=== PATIENT | female | born 1950 | race Caucasian/White ===

== ENCOUNTER → 2017-03-04 | Outpatient (CLI) | payer MEDICARE ==
[~2017-03-04] MED LIST: AMLO-254 PO; CARVEDILOL; CLOP75TA57 PO; FURO40TA4 PO; HYDR-2869 PO; HYDROCODONE; POTA10CA PO
--- NOTE | 2017-03-04 11:19 | RAD ---
Renal ultrasound with deep Doppler, 03/04/2017: History: Malignant hypertension The right kidney measures 10.6 cm in length while the left kidney measures 10.7 cm. There is no evidence of hydronephrosis. A 1.7 cm cyst is seen in the upper pole of the left kidney. A 2.1 cm hypoechoic nodule was less clearly delineated along the medial margin of the left kidney. The partially filled urinary bladder is unremarkable. Deep Doppler interrogation of the main renal arteries was performed. No high velocity is seen in either main renal artery to suggest significant renal artery stenosis. No parvus/tardus phenomena is evident. IMPRESSION: 1. No duplex evidence of significant renal artery stenosis. 2. Small left renal cyst. 3. Additional small hypoechoic lesion along the medial margin of the left kidney which may be a complicated cyst. CT scanning is suggested for further evaluation.
== END | disposition home or self-care (01) ==
LOC: US 08:35
PROVIDERS: ATTEND Internal Medicine Nephrology
DX: I15.0 Renovascular hypertension (principal); N28.1 Cyst of kidney, acquired; N28.89 Other specified disorders of kidney and ureter
CPT/HCPCS: 76770

== ENCOUNTER → 2017-03-23 | Outpatient (CLI) | payer MEDICARE ==
[~2017-03-23] MED LIST changes: -AMLO-254 PO; +AMLO-268 PO
--- NOTE | 2017-03-23 10:51 | CARD ---
APPROVED REPORT EXAM: Two-dimensional and M-mode echocardiogram with Doppler and color Doppler. Other Information Quality : GoodHR: 64bpm Rhythm : NSR INDICATION Chronic systolic (congestive) heart failure RISK FACTORS Hypertension Hyperlipidemia Diabetes 2D DIMENSIONS RVDd2.9 (2.9-3.5cm)Left Atrium(2D)3.6 (1.6-4.0cm) IVSd1.4 (0.7-1.1cm)Aortic Root(2D)2.9 (2.0-3.7cm) LVDd4.6 (3.9-5.9cm)LVOT Diameter2.2 (1.8-2.4cm) PWd1.4 (0.7-1.1cm)LVDs3.7 (2.5-4.0cm) FS (%) 20.5 %SV41.0 ml Aortic Valve AoV Peak Jacoby.131.0cm/sAoV VTI26.5cm AO Peak GR.6.9mmHgLVOT Peak Jacoby.74.4cm/s LVOT VTI 16.38cmAO Mean GR.4mmHg JOSE (VMAX)2.21cz1SJJ (VTI)2.39cm2 Mitral Valve MV E Ecgqsjud01.2cm/sMV E Peak Gr.5mmHg MV DECEL [id number] A Xcmesusl241.4cm/s MV E Mean Gr.2mmHgE/A Ratio0.7 MV A [id number] Pulmonary Valve PV Peak Itjqznhp31.9cm/sPV Peak Grad.4mmHg Pulmonary Vein S1 Hkznhkii14.7cm/sD2 Hubjeafx38.5cm/s LEFT VENTRICLE The left ventricle is normal size. There is mild to moderate concentric left ventricular hypertrophy. Left ventricle systolic function is normal. The Ejection Fraction is estimated at 50-55%. Abnormal s eptal wall motion probably from paced rhythm. Transmitral Doppler flow pattern is Grade I-abnormal re laxation pattern. No left ventricle thrombus noted on this study. RIGHT VENTRICLE The right ventricle is normal size. There is normal right ventricular wall thickness. The right ventr icular systolic function is normal. There is a pacemaker/ICD lead in the RA/RV. ATRIA The left atrium size is normal. The right atrium size is normal. The interatrial septum is intact wit h no evidence for an atrial septal defect or patent foramen ovale as noted on 2-D or Doppler imaging. AORTIC VALVE The aortic valve is mildly sclerotic. The aortic valve is trileaflet. Doppler and Color Flow revealed no significant aortic regurgitation. There is no significant aortic valvular stenosis. MITRAL VALVE Mitral annular calcification is mild. The mitral valve leaflets are thickened. There is no evidence o f mitral valve prolapse. There is no mitral valve stenosis. Doppler and Color Flow revealed no mitral valve regurgitation noted. TRICUSPID VALVE Doppler and Color Flow revealed no tricuspid valve regurgitation noted. There is no pulmonary hyperte nsion. PULMONIC VALVE The pulmonic valve is not well visualized but appears to open adequately. Doppler and Color Flow reve aled no pulmonic valvular regurgitation. There is no pulmonic valvular stenosis by spectral Doppler. GREAT VESSELS The aortic root is normal in size. The ascending aorta is normal in size. The pulmonary artery is nor mal. The IVC is normal in size and collapses >50% with inspiration. PERICARDIAL EFFUSION There is no evidence of significant pericardial effusion. Critical Notification Critical Value: No <Conclusion> Left ventricle systolic function is normal. The Ejection Fraction is estimated at 50-55%. Abnormal septal wall motion probably from paced rhythm. Transmitral Doppler flow pattern is Grade I-abnormal relaxation pattern. There is no evidence of significant pericardial effusion.
== END | disposition home or self-care (01) ==
LOC: ECHO 08:40
PROVIDERS: ATTEND Internal Medicine Cardiovascular Disease
DX: I11.0 Hypertensive heart disease with heart failure (principal); I50.22 Chronic systolic (congestive) heart failure; E78.5 Hyperlipidemia, unspecified; E11.9 Type 2 diabetes mellitus without complications; Z95.0 Presence of cardiac pacemaker
CPT/HCPCS: 93306

== ENCOUNTER → 2017-10-27 | Outpatient (CLI) | payer MEDICARE ==
--- NOTE | 2017-10-27 13:11 | RAD ---
Exam : Carotid Duplex with Grayscale Ultrasound and Spectral and Color Doppler Analysis: Clinical Indications: Slurred speech. History of stroke. Comparison study: None available. PQRS Compliance Statement - Stenosis calculations for CT, MR and conventional angiography are based upon measurement of the distal ICA diameter in accordance with the NASCET methodology. Stenosis calculations for carotid ultrasound studies are derived from validated velocity criteria which are known to correlate with the NASCET methodology. Findings: The common, internal and external carotid arteries were examined by grayscale, color and spectral Doppler ultrasound. Mild to moderate atherosclerotic vascular calcification is seen throughout the bilateral common carotid arteries and proximal internal carotid arteries, most prominent in the carotid bulbs bilaterally. Flow in the vertebral arteries is antegrade. The following are the velocities and ratios in the carotid arteries on both sides: RIGHT ICA PV: 62cm/sec RIGHT CCA PV: 52cm/sec RIGHT ICA ED: 24cm/sec RIGHT IC/CCPV: Less than 2 RIGHT VERTEBRAL: antegrade flow LEFT ICA PV: 57cm/sec LEFT CCA PV: 52cm/sec LEFT ICA ED: 21cm/sec LEFT IC/CCPV: Less than 2 LEFT VERTEBRAL: antegrade flow <50% ICA Stenosis: PSV < 125cm/s (EDV < 40cm/s; SVR < 2.0) 50-69% ICA Stenosis: PSV < 125-229cm/s (EDV 40-99cm/s; SVR 2.0-3.9) >70% ICA Stenosis: PSV > 230cm/s (EDV >100cm/s; SVR >4.0) Impression: Mild to moderate diffuse atherosclerotic vascular disease with less than 50% stenosis of the bilateral internal carotid arteries by ultrasound criteria
== END | disposition home or self-care (01) ==
LOC: US 11:05
PROVIDERS: ATTEND Psychiatry & Neurology Neurology with Special Qualifications in Child Neurology
DX: I65.23 Occlusion and stenosis of bilateral carotid arteries (principal); I11.0 Hypertensive heart disease with heart failure; I50.22 Chronic systolic (congestive) heart failure; E11.9 Type 2 diabetes mellitus without complications; E78.5 Hyperlipidemia, unspecified
CPT/HCPCS: 93880

== ENCOUNTER → 2018-04-28 | Outpatient (CLI) | payer MEDICARE ==
--- NOTE | 2018-04-28 14:53 | RAD ---
DATE: 04/28/2018 EXAM: DIGITAL SCREEN BILAT W/CAD HISTORY: Routine screening COMPARISON: 12/29/2013 This study was interpreted with the benefit of Computerized Aided Detection (CAD). Breast Density: SCATTERED The breast parenchyma shows scattered fibroglandular densities. Breast parenchyma level B. FINDINGS: No new or enlarging breast densities are seen. Benign type calcifications are present. No suspicious microcalcifications have developed. IMPRESSION: Stable mammograms without evidence of malignancy. BI-RADS CATEGORY: 2 BENIGN FINDING(S) RECOMMENDED FOLLOW-UP: 12M 12 MONTH FOLLOW-UP PQRS compliance statement: Patient information was entered into a reminder system with a target due date for the next mammogram. Mammography is a sensitive method for finding small breast cancers, but it does not detect them all and is not a substitute for careful clinical examination. A negative mammogram does not negate a clinically suspicious finding and should not result in delay in biopsying a clinically suspicious abnormality. "Our facility is accredited by the [employer] Mammography [employer]."
== END | disposition home or self-care (01) ==
LOC: MAMMO 13:16
PROVIDERS: ATTEND Physician Assistant Medical
DX: Z12.31 Encounter for screening mammogram for malignant neoplasm of breast (principal)
CPT/HCPCS: 77067

== ENCOUNTER → 2018-05-31 | Outpatient (CLI) | payer MEDICARE ==
--- NOTE | 2018-05-31 09:12 | RAD ---
3 views right elbow 05/31/2018 7:36 AM Indication: Pain in joint Comparison: None Findings: There is no acute fracture or dislocation. Articular surfaces are uninterrupted and smooth. Soft tissues are unremarkable. No evidence of joint effusion or fat-pad displacement is seen. Impression: No evidence of acute osseous abnormality. Electronically signed by: Jayme Bernstein MD (05/31/2018 9:08 AM) [id number]
== END | disposition home or self-care (01) ==
LOC: RAD 07:24
PROVIDERS: ATTEND Physician Assistant Medical
DX: M25.521 Pain in right elbow (principal)
CPT/HCPCS: 73070

== ENCOUNTER 2018-10-05 19:25 | Inpatient (IN) | payer MEDICARE ==
[~2018-10-05] VITALS: Ht 157.5 cm; Wt 78.0 kg
[2018-10-05 20:05] LABS: BASO % 1 % (0-3); EOS # 0.2 x10^3/uL (0.0-0.7); EOS % 3 % (0-3); HEMATOCRIT 35.6 % (36.0-47.0); HEMOGLOBIN 11.8 g/dL (12.0-15.5); LYMPH % 15 % (24-48); MEAN CORPUSCULAR HEMOGLOBIN 30 pg (25-35); MEAN CORPUSCULAR HGB CONC 33 g/dL (31-37); MEAN CORPUSCULAR VOLUME 90 fL (79-100); MONO # 0.5 x10^3/uL (0.0-1.1); MONO % 7 % (0-9); NEUT # 5.2 x10^3uL (1.8-7.7); NEUT % 75 % (31-73); PLATELET COUNT 261 x10^3/uL (140-400); RED BLOOD COUNT 3.95 x10^6/uL (3.50-5.40)
[2018-10-05 20:24] LABS: ALBUMIN 2.9 g/dL (3.4-5.0); ALBUMIN/GLOBULIN RATIO 0.8 (1.0-1.7); CALCIUM 9.7 mg/dL (8.5-10.1); CREATININE 2.4 mg/dL (0.6-1.0); GFR 20.1; POTASSIUM 4.2 mmol/L (3.5-5.1); TOTAL BILIRUBIN 0.4 mg/dL (0.2-1.0); TOTAL PROTEIN 6.7 g/dL (6.4-8.2)
[2018-10-05] MEDS ORDERED: IV NORMAL SALINE 1,000ML 1,000 ML IV ONE (20:45)
[2018-10-05] MEDS ORDERED: AZITHROMYCIN 500 MG in IV NORMAL SALINE 250ML 250 ML IV ONE (21:15)
--- NOTE | 2018-10-05 21:17 | PHYS DOC ---
Past History Past Medical History: Diabetes, Hypertension Past Surgical History: Appendectomy, Cholecystectomy, Hysterectomy, Pacemaker, Other Alcohol Use: Occasionally Drug Use: None Adult General Chief Complaint Chief Complaint: SHORTNESS OF BREATH HPI HPI 67-year-old female presents with increasing shortness of breath for last 2 days. The patient has had a cough and feels like it is getting harder to breathe. She also noted her left foot and lower leg is swollen more than the right and she is concerned about this. She denies chest pain. She does not believe she has had a fever at home. She has no history of lung disease. She is not a smoker. She does not take any breathing treatments. Review of Systems Review of Systems Constitutional: Denies fever or chills [] Eyes: Denies change in visual acuity, redness, or eye pain [] HENT: Denies nasal congestion or sore throat [] Respiratory: Cough with shortness of breath [] Cardiovascular: No additional information not addressed in HPI [] GI: Denies abdominal pain, nausea, vomiting, bloody stools or diarrhea [] : Denies dysuria or hematuria [] Musculoskeletal: Denies back pain or joint pain [] Integument: Denies rash or skin lesions [] Neurologic: Denies headache, focal weakness or sensory changes [] Endocrine: Denies polyuria or polydipsia [] All other systems were reviewed and found to be within normal limits, except as documented in this note. Current Medications Current Medications Current Medications Medications (Trade) Dose Ordered Sig/Darleen Start Time Stop Time Status Last Admin Dose Admin Azithromycin 500 mg/Sodium Chloride 250 ml @ 250 mls/hr 1X ONCE 10/05/18 21:15 10/05/18 22:14 Ceftriaxone Sodium 1 gm/ Sodium Chloride 50 ml @ 100 mls/hr 1X ONCE 10/05/18 21:15 10/05/18 21:44 Sodium Chloride 1,000 ml @ 1,000 mls/hr 1X ONCE 10/05/18 20:45 10/05/18 21:44 10/05/18 20:57 1,000 MLS/HR Allergies Allergies Allergies Coded Allergies Type Severity Reaction Last Updated Verified Sulfa (Sulfonamide Antibiotics) Allergy Intermediate 06/25/16 Yes codeine Allergy Intermediate 06/25/16 Yes morphine Allergy Mild 06/25/16 Yes Physical Exam Physical Exam Constitutional: Well developed, well nourished, no acute distress, non-toxic appearance. [] HENT: Normocephalic, atraumatic, bilateral external ears normal, oropharynx moist, no oral exudates, nose normal. [] Eyes: PERRLA, EOMI, conjunctiva normal, no discharge. [] Neck: Normal range of motion, no tenderness, supple, no stridor. [] Cardiovascular:Heart rate regular rhythm, no murmur [] Lungs & Thorax: Decreased breath sounds at the right base.[] Abdomen: Bowel sounds normal, soft, no tenderness, no masses, no pulsatile masses. [] Skin: Warm, dry, no erythema, no rash. [] Back: No tenderness, no CVA tenderness. [] Extremities: No tenderness, no cyanosis, no clubbing, ROM intact, no edema. [] Neurologic: Alert and oriented X 3, normal motor function, normal sensory function, no focal deficits noted. [] Psychologic: Affect normal, judgement normal, mood anxious. [] Current Patient Data Vital Signs Vital Signs Date Time Temp Pulse Resp B/P (MAP) Pulse Ox O2 Delivery O2 Flow Rate FiO2 10/05/18 21:01 91 19 185/89 (121) 97 Room Air 10/05/18 19:30 97.8 Lab Results Laboratory Tests Test 10/05/18 19:35 White Blood Count 7.0 x10^3/uL (4.0-11.0) Red Blood Count 3.95 x10^6/uL (3.50-5.40) Hemoglobin 11.8 g/dL (12.0-15.5) L Hematocrit 35.6 % (36.0-47.0) L Mean Corpuscular Volume 90 fL (79-100) Mean Corpuscular Hemoglobin 30 pg (25-35) Mean Corpuscular Hemoglobin Concent 33 g/dL (31-37) Red Cell Distribution Width 15.0 % (11.5-14.5) H Platelet Count 261 x10^3/uL (140-400) Neutrophils (%) (Auto) 75 % (31-73) H Lymphocytes (%) (Auto) 15 % (24-48) L Monocytes (%) (Auto) 7 % (0-9) Eosinophils (%) (Auto) 3 % (0-3) Basophils (%) (Auto) 1 % (0-3) Neutrophils # (Auto) 5.2 x10^3uL (1.8-7.7) Lymphocytes # (Auto) 1.0 x10^3/uL (1.0-4.8) Monocytes # (Auto) 0.5 x10^3/uL (0.0-1.1) Eosinophils # (Auto) 0.2 x10^3/uL (0.0-0.7) Basophils # (Auto) 0.0 x10^3/uL (0.0-0.2) Sodium Level 144 mmol/L (136-145) Potassium Level 4.2 mmol/L (3.5-5.1) Chloride Level 110 mmol/L (98-107) H Carbon Dioxide Level 20 mmol/L (21-32) L Anion Gap 14 (6-14) Blood Urea Nitrogen 38 mg/dL (7-20) H Creatinine 2.4 mg/dL (0.6-1.0) H Estimated GFR (Cockcroft-Gault) 20.1 BUN/Creatinine Ratio 16 (6-20) Glucose Level 139 mg/dL (70-99) H Calcium Level 9.7 mg/dL (8.5-10.1) Total Bilirubin 0.4 mg/dL (0.2-1.0) Aspartate Amino Transferase (AST) 31 U/L (15-37) Alanine Aminotransferase (ALT) 19 U/L (14-59) Alkaline Phosphatase 194 U/L (46-116) H Troponin I Quantitative < 0.017 ng/mL (0-0.055) Total Protein 6.7 g/dL (6.4-8.2) Albumin 2.9 g/dL (3.4-5.0) L Albumin/Globulin Ratio 0.8 (1.0-1.7) L EKG EKG Paced rhythm, rate 91, white count wrist complexes,[] Radiology/Procedures Radiology/Procedures [] Impressions: Preliminary interpretation: Right middle lobe consolidation, cardiomegaly, pacemaker Course & Med Decision Making Course & Med Decision Making Pertinent Labs and Imaging studies reviewed. (See chart for details) The patient's chest x-ray as suspicious for pneumonia. I will treat her with Rocephin and azithromycin the ED. I will admit her to the hospital. I discussed the patient with Dr. Rand and he has agreed to admit her for further treatment. [] Dragon Disclaimer Dragon Disclaimer This electronic medical record was generated, in whole or in part, using a voice recognition dictation system. Departure Departure: Impression: Primary Impression: Pneumonia Disposition: ADMITTED INPATIENT Admitting Physician: Santos Rand Condition: STABLE Referrals: MILLA ROSARIO (PCP) Problem Qualifiers Primary Impression: Pneumonia Pneumonia type: due to unspecified organism Laterality: right Lung location : middle lobe of lung Qualified Codes: J18.1 - Lobar pneumonia, unspecified organism NASRIN LOPEZ DO Oct 05, 2018 21:17
[2018-10-05] MEDS ORDERED: cefTRIAXone SODIUM 1 GM VIAL ONE (21:28)
[2018-10-05] MEDS ORDERED: AZITHROMYCIN 500 MG VIAL. IV ONE (21:28)
[2018-10-05] MEDS ORDERED: IV NORMAL SALINE 50ML 50 ML ONE (21:28)
[2018-10-05] MEDS ORDERED: IV NORMAL SALINE 250ML 250 ML ONE (21:28)
[2018-10-05] MEDS ORDERED: ONDANSETRON PF 4 MG/2 ML VIAL. IV PRN (21:45)
[2018-10-05] MEDS ORDERED: ACETAMINOPHEN 325 MG TABLET PO PRN (21:45)
--- NOTE | 2018-10-05 22:31 | RAD ---
CLINICAL HISTORY: Left lower extremity swelling. Shortness of air. COMPARISON: None available. TECHNIQUE: Ultrasound evaluation of the left lower extremity was performed from the groin to the upper calf with gibbons scale, spectral and color doppler evaluation. FINDINGS: The common femoral vein, and femoral vein, including the saphenous-femoral junction are normal in appearance. Color and spectral Doppler evaluation demonstrates normal spontaneous flow, augmentation and phasicity. The popliteal vein and visualized calf veins also demonstrate normal compressibility and flow. Of note, the catheter veins are not well visualized. IMPRESSION: No evidence for left lower extremity DVT. Electronically signed by: Elan Rodriguez MD (10/05/2018 10:28 PM) [facility]
[2018-10-05 23:16] VITALS: BP 175/87
--- NOTE | 2018-10-06 00:07 | RAD ---
EXAM: AP View of the chest DATE: 10/05/2018 8:11 PM INDICATION: chest pain, shortness of breath COMPARISON: No Prior FINDINGS/ IMPRESSION: Cardiac generator pack obscures a portion of the left chest with leads in stable position. Mild cardiomegaly. Aorta is tortuous. Bibasilar opacities are seen, favor developing consolidation although atelectasis may have similar appearance. Small left pleural effusion. No pneumothorax. Electronically signed by: Elan Rodriguez MD (10/06/2018 12:04 AM) [facility]
[2018-10-06 01:44] VITALS: BP 174/80
[2018-10-06 05:05] VITALS: BP 163/91
[2018-10-06 06:26] LABS: BASO % 1 % (0-3); EOS # 0.1 x10^3/uL (0.0-0.7); EOS % 2 % (0-3); HEMOGLOBIN 9.4 g/dL (12.0-15.5); LYMPH # 0.7 x10^3/uL (1.0-4.8); LYMPH % 14 % (24-48); MEAN CORPUSCULAR HEMOGLOBIN 31 pg (25-35); MEAN CORPUSCULAR HGB CONC 33 g/dL (31-37); MEAN CORPUSCULAR VOLUME 92 fL (79-100); MONO # 0.4 x10^3/uL (0.0-1.1); MONO % 7 % (0-9); NEUT # 4.1 x10^3uL (1.8-7.7); NEUT % 77 % (31-73); PLATELET COUNT 165 x10^3/uL (140-400); RED BLOOD COUNT 3.07 x10^6/uL (3.50-5.40); RED CELL DISTRIBUTION WIDTH 14.8 % (11.5-14.5); WHITE BLOOD COUNT 5.3 x10^3/uL (4.0-11.0)
[2018-10-06 06:29] LABS: CALCIUM 8.7 mg/dL (8.5-10.1); CREATININE 2.3 mg/dL (0.6-1.0); GFR 21.2; POTASSIUM 4.2 mmol/L (3.5-5.1)
[2018-10-06] MEDS: IPRATRPIUM/ALBUTEROL 0.5/2.5MG 3 ML NEBU. NEB SCH ×4 (08:00→20:33)
[2018-10-06] MEDS: amLODIPine BESYLATE 10 MG TABLET PO SCH (08:29)
--- NOTE | 2018-10-06 09:16 | EKG ---
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
[2018-10-06] MEDS ORDERED: SERT50TA8 PO (09:34)
[2018-10-06] MEDS ORDERED: HYDR100T24 PO (09:40)
[2018-10-06 10:29] VITALS: BP 154/71
[2018-10-06] MEDS: NYSTATIN TOPICAL POWDER 15GM BOTTLE. TP SCH ×2 (11:13→20:34)
[2018-10-06 14:59] VITALS: BP 170/81
--- NOTE | 2018-10-06 16:37 | HP ---
ADMIT DATE: 10/05/2018 HISTORY OF PRESENT ILLNESS: The patient is a 67-year-old female patient who came to the Emergency Room with complaint of increasing shortness of breath, the last 2 days has had also cough that is mostly dry. She also noted that her left foot and lower leg is swollen more than the right, she is concerned about this. She denied any chest pain. She does not believe that she has any fever at home. She has no history of lung disease before. She was evaluated in the Emergency Room and has had lab work, which showed her white cell count to be normal. Her chemistry showed that she has chronic kidney disease with a BUN of 38, creatinine 2.4. Her chest x-ray showed that the patient has mild cardiomegaly. She has bibasilar opacities. She seems to have developed consolidation, although atelectasis may have similar appearance, she has small left pleural effusion, and no pneumothorax, so she was admitted with community-acquired pneumonia with possible CHF exacerbation. She was treated with ceftriaxone and Zithromax, and was admitted with community-acquired pneumonia. PAST MEDICAL HISTORY: Significant for hypertension, hyperlipidemia, probably sick sinus syndrome, status post permanent pacemaker placement, type 2 diabetes mellitus, chronic kidney disease. She has a history of hepatitis C that was treated 2 years ago. She has left middle cerebral artery territory infarct with right-sided hemiplegia, aphasia and dysphagia. She has generalized osteoarthritis. PAST SURGICAL HISTORY: Significant for permanent pacemaker placement, colonoscopies, esophagogastroduodenoscopy, bilateral cataract extraction, tonsillectomy, cholecystectomy, appendectomy, total abdominal hysterectomy, bilateral salpingo-oophorectomy. ALLERGIES: SHE IS ALLERGIC TO SULFA DRUG, CODEINE, MORPHINE AND PROMETHAZINE. MEDICATIONS: She is currently on following medications: She is on Plavix 75 mg once a day, amlodipine/atorvastatin 10/10 mg once a day, hydralazine 100 mg 3 times a day, sertraline 50 mg daily and furosemide 40 mg once a day. FAMILY HISTORY: She has one full sister who at the age of 46 because of congestive heart failure, alcoholism. Her father at the age of 42 because of emphysema. Mother at the age of 42 because of breast cancer. SOCIAL HISTORY: She is , has 2 daughters, one of her daughters at age of 46 because what she claims to be an overdose. She does not smoke, drink alcohol or use any drugs. 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 REVIEW OF SYSTEMS: The patient denied any blurring of vision. She has had bilateral cataract extraction, but denied any glaucoma. She probably has macular degeneration. Denied any earache, tinnitus or sensorineural deafness. Denied any nosebleeds, stuffy nose or postnasal drip. Denied any sore throat, sore tongue, toothache, hoarseness of voice. Did complain of difficulty swallowing. She has lost about 100 pounds according to her, unintentionally. Denied any nausea, vomiting, diarrhea or constipation. Denied any hematemesis, melena or hematochezia. Denied any dysuria, frequency or hematuria. Denied any chest pain. Did complain of shortness of breath, cough, which is mostly dry. Denied any chills, rigors or fever. Did complain of orthopnea. Denied any dizziness, lightheadedness, or vertigo. PHYSICAL EXAMINATION: GENERAL: On arrival to the Emergency Room, she was pale, but no jaundice, cyanosis, or thyromegaly. No jugular venous distention, she has bilateral lower limb edema. VITAL SIGNS: Her heart rate was 95, blood pressure was 185/89, temperature was 97.8, respiratory rate was 20, and oxygen saturation was 96%. HEAD, EYES, EARS, NOSE, AND THROAT: Showed normocephalic, atraumatic. NECK: Supple. HEART: Showed normal first and second heart sounds with no gallop, rub or murmur. CHEST: Shows central trachea, equal bilateral expansion, air entry, vesicular sounds with crepitation mostly on the left side posteriorly. I could not appreciate any rhonchi. ABDOMEN: Distended, soft, nontender. NEUROLOGIC: She was awake, alert. She has slow monotonous speech, sometimes difficult to understand. However, all her cranial nerves are intact. EXTREMITIES: She moves her extremities without difficulty. She ambulates with a walker. LABORATORY DATA: On arrival to the hospital showed a white cell count of 7000, hemoglobin 12, hematocrit 36, MCV 90 and platelet count 261,000. Her chemistry showed a serum sodium 144, potassium 4.2, chloride 110, bicarbonate 20, anion gap of 14, BUN 38, creatinine 2.4, estimated GFR was 20 mL per minute. Her glucose was 139, lactic acid was only 0.4. Calcium was 9.7. Total bilirubin, AST, ALT are normal. Alkaline phosphatase slightly elevated. Her first set of cardiac enzymes showed troponin to be less than 0.017. Total protein was 6.7, albumin was 2.9. Her chest x-ray showed that the cardiac generator pack obscures portion of the left chest with leads in stable position, mild cardiomegaly, aorta is tortuous, bibasilar opacities are seen favor developing consolidation, although atelectasis may have similar appearance. She has small left-sided pleural effusion, no pneumothorax. She has venous Doppler ultrasound of left lower extremity showed no evidence of left lower extremity DVT. She was admitted, was started on IV antibiotic and ceftriaxone and Zithromax; unfortunately, she was also given a liter of fluid. We will continue with all her medication and probably start her on IV Lasix tomorrow morning and decide on further management accordingly. GARY DEAN MD DR: HÉCTOR/gifty JOB#: [id number] / [id number]
[2018-10-06 19:30] VITALS: BP 170/80
[2018-10-06] MEDS: ATORVASTATIN CALCIUM 10 MG TABLET. PO SCH (20:33)
[2018-10-06] MEDS ORDERED: NON FORMULARY ITEM (Hydralazine Hcl 1 TAB) PO SCH (21:00)
--- NOTE | 2018-10-06 21:03 | PN ---
DATE: 10/06/2018 SUBJECTIVE: The patient is resting, slightly propped up in bed, in no apparent distress. She denied any chest pain. She becomes short of breath when she talks, does have some slow monotonous speech, but denied any chest pain. Her chest x-ray showed cardiomegaly. Her BNP was high at 35,000, although she is not seen to have an overt congestive heart failure. Unfortunately, she was given a liter of normal saline in the Emergency Room, was admitted with community-acquired pneumonia, was started on IV ceftriaxone and Zithromax. OBJECTIVE: GENERAL: When I examined her today, she looked pale, but no jaundice, cyanosis, or thyromegaly. No jugular venous distension. No lower limb edema. VITAL SIGNS: Her heart rate was 70, blood pressure was 170/81, temperature was 98.3, respiratory rate 20 and oxygen saturation was 92% on room air. HEAD, EYES, EARS, NOSE AND THROAT: Showed normocephalic, atraumatic. NECK: Supple. HEART: Showed normal first and second heart sounds with no gallop, rub or murmur. CHEST: Clear to auscultation. No crepitation or rhonchi. ABDOMEN: Distended, soft, nontender. No guarding or rigidity. No organomegaly. All hernial orifices intact. Bowel sounds normal. NEUROLOGIC: Chest shows central trachea, equal reduced expansion, reduced air entry, vesicular sounds with crepitation mostly in the left side posteriorly and to lesser extent on the right side posteriorly. ABDOMEN: Distended, soft, nontender. NEUROLOGIC: She is awake, alert, slow monotonous speech, sometimes difficult to understand; however, all cranial nerves intact. She moves all extremities without difficulty. She ambulates with a walker. Her intake and output were incompletely recorded. LABORATORY DATA: Her lab work this morning showed a white cell count of 5300, hemoglobin 9.4, hematocrit 28, MCV 92 and platelet count of 165,000. Her chemistry showed a serum sodium 143, potassium 4.2, chloride 114, bicarbonate 21, anion gap of 8, BUN 38, creatinine 2.3. Estimated GFR was 21 mL per minute. Her glucose 130, calcium was 8.7. BNP was 35,000. ASSESSMENT AND PLAN: Community-acquired pneumonia, most likely involving the left lower lobe with prominent crepitation mostly on the left side posteriorly, to continue with IV ceftriaxone and Zithromax. The patient probably has acute on chronic diastolic congestive heart failure. We will switch her to IV Lasix, start it probably tomorrow morning. I will consult the cardiology to assist with her management. 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 She has also hepatitis C that was treated 2 years ago and cured. GARY DEAN MD DR: HÉCTOR/gifty JOB#: [id number] / [id number]
[2018-10-06] MEDS ORDERED: AZITHROMYCIN 500 MG in IV NORMAL SALINE 250ML 250 ML IV SCH (22:00)
[2018-10-06 23:20] VITALS: BP 161/78
[2018-10-07] MEDS: IPRATRPIUM/ALBUTEROL 0.5/2.5MG 3 ML NEBU. NEB SCH ×5 (04:22→20:08)
[2018-10-07 05:03] VITALS: BP 148/87
[2018-10-07] MEDS ORDERED: ONDANSETRON PF 4 MG/2 ML VIAL. IV PRN (06:15)
[2018-10-07] MEDS: FUROSEMIDE 40 MG/4 ML VIAL IVP SCH (06:33)
[2018-10-07] MEDS: LORazepam 0.5 MG TABLET PO PRN ×2 (06:34→23:49)
[2018-10-07 06:39] LABS: CALCIUM 9.4 mg/dL (8.5-10.1); CREATININE 2.5 mg/dL (0.6-1.0); GFR 19.2; POTASSIUM 4.1 mmol/L (3.5-5.1)
[2018-10-07] MEDS: amLODIPine BESYLATE 10 MG TABLET PO SCH (07:44)
[2018-10-07] MEDS: CLOPIDOGREL BISULFATE 75 MG TABLET PO SCH (08:18)
[2018-10-07] MEDS: NYSTATIN TOPICAL POWDER 15GM BOTTLE. TP SCH ×2 (08:18→19:48)
[2018-10-07] MEDS: SERTRALINE 50 MG TABLET. PO SCH (08:18)
[2018-10-07 10:00] VITALS: BP 184/75
--- NOTE | 2018-10-07 10:27 | RAD ---
Portable chest, 10/07/2018: HISTORY: Congestive heart failure Comparison is made to a study from 10/05/2018. A left-sided transvenous pacing device with 3 leads is unchanged. The heart is enlarged. There is worsening vascular congestion with bibasilar infiltrates most likely representing pulmonary edema due to congestive heart failure. The left hemidiaphragm is obscured by infiltrate and/or pleural fluid. There is blunting of the right lateral costophrenic angle compatible with a small amount of right-sided pleural fluid. IMPRESSION: Worsening congestive heart failure with basilar pulmonary edema and probable pleural effusions. Electronically signed by: Jose Mckeon MD (10/07/2018 10:25 AM) [facility]
--- NOTE | 2018-10-07 11:46 | PDOC2 ---
ALANKAREN Julio COMPOSITOR APPRENTICE 10/07/18 1146: CONSULT Date of Admission DATE: 10/07/18 TIME: 11:46 Reason for Consult: chf Problem List Problems Medical Problems: (1) Pneumonia Status: Acute History of Present Illness Ms Bates is a 67-year-old female who presents with complaints of shortness of breath increasing over the last 2 days with dry nonproductive cough. She Noted more edema than formal in left lower extremity so presented for evaluation. Venous duplex was negative for DVT. CXR revealed pneumonia. Patient was started on antibiotics and given 1 liter of IVF. BNP was noted to be significantly elevated so consult was called for heart failure. she denies chest pain, palpitations, lightheadedness or syncope. She reports edema as above but denies congestive symptoms. She denies any increase in dyspnea since admission. Past Medical History echo 03/23/17 Left ventricle systolic function is normal. The Ejection Fraction is estimated at 50-55%. Abnormal septal wall motion probably from paced rhythm. Transmitral Doppler flow pattern is Grade I-abnormal relaxation pattern. There is no evidence of significant pericardial effusion. Cardiovascular: CHF (NICM likely from viral infection), HTN, Hyperlipidemia, hypertension, and ICD/CLAY [employer] implant. Pulmonary: No pertinent hx CENTRAL NERVOUS SYSTEM: TIA, CVA with right hemiplegia, aphasia and dysphagia GI: No pertinent hx Heme/Onc: No pertinent hx Hepatobiliary: No pertinent hx Psych: No pertinent hx Musculoskeletal: Osteoarthritis Rheumatologic: No pertinent hx Infectious disease: No pertinent hx ENT: No pertinent hx Renal/: No pertinent hx Endocrine: Diabetes (2) Dermatology: No pertinent hx Past Surgical History ICD (BiV), Appendectomy, Cholecystectomy, Hysterectomy, bilateral salpingo- oophorectomy. Family History Diabetes Family History: Cancer, Heart Disease, Hypertension, Other (heart failure and emphysema) Social History Smoke: No ALCOHOL: none Drugs: None Lives: nursing facility Current Medications Current Medications Sodium Chloride 1,000 ml @ 1,000 mls/hr 1X ONCE IV Last administered on at 20:57; Start 10/05/18 at 20:45; Stop 10/05/18 at 21:44; Status DC Ceftriaxone Sodium 1 gm/ Sodium Chloride 50 ml @ 100 mls/hr 1X ONCE IV Last administered on 10/05/18at 21:37; Start 10/05/18 at 21:15; Stop 10/05/18 at 21:44 ; Status DC Azithromycin 500 mg/Sodium Chloride 250 ml @ 250 mls/hr 1X ONCE IV Last administered on 10/05/18at 21:37; Start 10/05/18 at 21:15; Stop 10/05/18 at 22:14 ; Status DC Sodium Chloride 250 ml @ As Directed STK-MED ONCE .ROUTE ; Start 10/05/18 at 21 :28; Stop 10/05/18 at 21:29; Status DC Sodium Chloride 50 ml @ As Directed STK-MED ONCE .ROUTE ; Start 10/05/18 at 21: 28; Stop 10/05/18 at 21:29; Status DC Azithromycin (Zithromax) 500 mg STK-MED ONCE IV ; Start 10/05/18 at 21:28; Stop 10/05/18 at 21:29; Status DC Ceftriaxone Sodium (Rocephin) 1 gm STK-MED ONCE .ROUTE ; Start 10/05/18 at 21:28 ; Stop 10/05/18 at 21:29; Status DC Ondansetron HCl (Zofran) 4 mg PRN Q4HRS PRN IV NAUSEA/VOMITING Last administered on 10/06/18at 03:16; Start 10/05/18 at 21:45; Stop 10/06/18 at 21:44 ; Status DC Acetaminophen (Tylenol) 650 mg PRN Q4HRS PRN PO FEVER; Start 10/05/18 at 21:45 ; Stop 10/06/18 at 21:44; Status DC Albuterol/ Ipratropium (Duoneb) 3 ml RTQID NEB Last administered on 10/07/18at 10:42; Start 10/06/18 at 08:00 Nystatin (Nystop) 1 stefanie BID TP Last administered on 10/07/18at 08:18; Start at 09:00 Ceftriaxone Sodium 1 gm/ Sodium Chloride 50 ml @ 100 mls/hr HS IV Last administered on 10/06/18at 22:16; Start 10/06/18 at 21:00 Azithromycin 500 mg/Sodium Chloride 250 ml @ 250 mls/hr Q24H IV Last administered on 10/06/18at 22:46; Start 10/06/18 at 22:00 Amlodipine Besylate (Norvasc) 10 mg DAILY PO Last administered on 10/07/18 07: 44; Start 10/06/18 at 09:00 Atorvastatin Calcium (Lipitor) 10 mg QHS PO Last administered on 10/06/18 20: 33; Start 10/06/18 at 21:00 Hydralazine HCl (Apresoline) 50 mg TID PO Last administered on 10/06/18 15:29 ; Start 10/06/18 at 09:00; Stop 10/06/18 at 17:45; Status DC Clopidogrel Bisulfate (Plavix) 75 mg DAILY PO Last administered on 10/07/18 08 :18; Start 10/07/18 at 09:00 Sertraline HCl (Zoloft) 50 mg DAILY PO Last administered on 10/07/18 08:18; Start 10/07/18 at 09:00 Non-Formulary Medication (Hydralazine Hcl ) 1 tab TID PO ; Start 10/06/18 at 21: 00; Status UNV Furosemide (Lasix) 40 mg DAILY IVP Last administered on 10/07/18 06:33; Start 10/07/18 at 07:00 Hydralazine HCl (Apresoline) 50 mg STK-MED ONCE .ROUTE ; Start 10/06/18 at 15:26 ; Stop 10/06/18 at 15:27; Status DC Hydralazine HCl (Apresoline) 100 mg TID PO Last administered on 10/07/18at 07:45 ; Start 10/06/18 at 21:00 Ondansetron HCl (Zofran) 4 mg PRN Q4HRS PRN IV NAUSEA/VOMITING; Start 10/07/18 at 06:15 Guaifenesin (Mucinex Er) 600 mg BID PO Last administered on 10/07/18 07:44; Start 10/07/18 at 06:30 Lorazepam (Ativan) 0.5 mg PRN Q8HRS PRN PO ANXIETY / AGITATION Last administered on 10/07/18 06:34; Start 10/07/18 at 06:15 Lactobacillus Rhamnosus (Culturelle) 1 cap BID PO ; Start 10/07/18 at 21:00 Active Scripts Active Reported Hydralazine Hcl 100 Mg Tablet 1 Tab PO TID Sertraline Hcl 50 Mg Tablet 50 Mg PO DAILY Amlodipine-Atorvast 10-10 Mg (Amlodipine/Atorvastatin) 1 Each Tablet 1 Each PO Plavix (Clopidogrel Bisulfate) 75 Mg Tablet 1 Tab PO DAILY Furosemide 40 Mg Tablet 1 Tab PO DAILY Allergies: Coded Allergies: Sulfa (Sulfonamide Antibiotics) (Verified Allergy, Intermediate, 06/25/16) codeine (Verified Allergy, Intermediate, 06/25/16) promethazine (Verified Allergy, Intermediate, 10/07/18) morphine (Verified Allergy, Mild, 06/25/16) Review of System as per HPI General: Alert, Oriented X3, Cooperative, mild distress HEENT: Atraumatic, EOMI Lungs: Other (coarse with dry cough, no crackles, rhonchi or definite wheezing) Heart: Normal S1, Normal S2, Other (no gallops, clicks or rubs) Abdomen: Normal bowel sounds, Soft, No tenderness Extremities: No cyanosis, Normal pulses, Other (+2 edema) Neuro: Normal speech, Strength at 5/5 X4 ext Psych/Mental Status: Mental status NL, Mood NL VITALS Vital Signs Date Time Temp Pulse Resp B/P (MAP) Pulse Ox O2 Delivery O2 Flow Rate FiO2 10/07/18 10:43 94 2.0 10/07/18 10:00 98.5 99 22 184/75 (111) Nasal Cannula Labs Laboratory Tests Test 10/05/18 19:35 10/06/18 01:20 10/06/18 06:02 10/07/18 06:04 White Blood Count 7.0 x10^3/uL (4.0-11.0) 5.3 x10^3/uL (4.0-11.0) Red Blood Count 3.95 x10^6/uL (3.50-5.40) 3.07 x10^6/uL (3.50-5.40) Hemoglobin 11.8 g/dL (12.0-15.5) 9.4 g/dL (12.0-15.5) Hematocrit 35.6 % (36.0-47.0) 28.0 % (36.0-47.0) Mean Corpuscular Volume 90 fL (79-100) 92 fL (79-100) Mean Corpuscular Hemoglobin 30 pg (25-35) 31 pg (25-35) Mean Corpuscular Hemoglobin Concent 33 g/dL (31-37) 33 g/dL (31-37) Red Cell Distribution Width 15.0 % (11.5-14.5) 14.8 % (11.5-14.5) Platelet Count 261 x10^3/uL (140-400) 165 x10^3/uL (140-400) Neutrophils (%) (Auto) 75 % (31-73) 77 % (31-73) Lymphocytes (%) (Auto) 15 % (24-48) 14 % (24-48) Monocytes (%) (Auto) 7 % (0-9) 7 % (0-9) Eosinophils (%) (Auto) 3 % (0-3) 2 % (0-3) Basophils (%) (Auto) 1 % (0-3) 1 % (0-3) Neutrophils # (Auto) 5.2 x10^3uL (1.8-7.7) 4.1 x10^3uL (1.8-7.7) Lymphocytes # (Auto) 1.0 x10^3/uL (1.0-4.8) 0.7 x10^3/uL (1.0-4.8) Monocytes # (Auto) 0.5 x10^3/uL (0.0-1.1) 0.4 x10^3/uL (0.0-1.1) Eosinophils # (Auto) 0.2 x10^3/uL (0.0-0.7) 0.1 x10^3/uL (0.0-0.7) Basophils # (Auto) 0.0 x10^3/uL (0.0-0.2) 0.0 x10^3/uL (0.0-0.2) Sodium Level 144 mmol/L (136-145) 143 mmol/L (136-145) 145 mmol/L (136-145) Potassium Level 4.2 mmol/L (3.5-5.1) 4.2 mmol/L (3.5-5.1) 4.1 mmol/L (3.5-5.1) Chloride Level 110 mmol/L (98-107) 114 mmol/L (98-107) 113 mmol/L (98-107) Carbon Dioxide Level 20 mmol/L (21-32) 21 mmol/L (21-32) 21 mmol/L (21-32) Anion Gap 14 (6-14) 8 (6-14) 11 (6-14) Blood Urea Nitrogen 38 mg/dL (7-20) 38 mg/dL (7-20) 36 mg/dL (7-20) Creatinine 2.4 mg/dL (0.6-1.0) 2.3 mg/dL (0.6-1.0) 2.5 mg/dL (0.6-1.0) Estimated GFR (Cockcroft-Gault) 20.1 21.2 19.2 BUN/Creatinine Ratio 16 (6-20) Glucose Level 139 mg/dL (70-99) 130 mg/dL (70-99) 127 mg/dL (70-99) Calcium Level 9.7 mg/dL (8.5-10.1) 8.7 mg/dL (8.5-10.1) 9.4 mg/dL (8.5-10.1) Total Bilirubin 0.4 mg/dL (0.2-1.0) Aspartate Amino Transf (AST/SGOT) 31 U/L (15-37) Alanine Aminotransferase (ALT/SGPT) 19 U/L (14-59) Alkaline Phosphatase 194 U/L (46-116) Troponin I Quantitative < 0.017 ng/mL (0-0.055) Total Protein 6.7 g/dL (6.4-8.2) Albumin 2.9 g/dL (3.4-5.0) Albumin/Globulin Ratio 0.8 (1.0-1.7) Lactic Acid Level 0.4 mmol/L (0.4-2.0) YR-Qig-P-Type Natriuretic Peptide > 12024 pg/mL (0-124) Images CXR - FINDINGS/ IMPRESSION: Cardiac generator pack obscures a portion of the left chest with leads in stable position. Mild cardiomegaly. Aorta is tortuous. Bibasilar opacities are seen, favor developing consolidation although atelectasis may have similar appearance. Small left pleural effusion. No pneumothorax. Assessment/Plan 1. acute respiratory insufficiency with elevated BNP in the setting of pneumonia and CKD - initial CXR without pulmonary congestion. s/p IVF. will repeat CXR and check ICD for optivol. Pneumonia mgmt per PCP 2. NICM s/p CRTd - check device. Last echo with normalized EF - continue medical mgmt 3. Hypertension - continue home meds 4. CKD stage IV 5. HLD - check lipids 6. diabetes mellitus - per PCP MATEO ESPARZA MD 10/07/18 8079: CONSULT Assessment/Plan Pt. seen and examined. Agree with above CRYPTOLOGIC SUPPORT SPECIALIST note. 67 y.o woman well known to us. She has acute on chronic decompensated HF Neck veins elevated Continue diuresis. If worsening renal function, transfer to [facility] for RHC/milrinone titration Supportive care. Discussed with RN, needs strict I/O's, daily standing weights. KAREN PHILLIPS APRN Oct 07, 2018 11:46 MATEO ESPARZA MD Oct 07, 2018 13:54
[2018-10-07] MEDS ORDERED: ISOSORBIDE MONONITRATE ER 30 MG TAB.ER.24H PO ONE (14:00)
--- NOTE | 2018-10-07 14:00 | CARD ---
MR#: [id number] Date of Study: 10/07/2018 Ordering Physician: KAREN PHILLIPS, Referring Physician: GARY DEAN Tech: Cyndy Yee APPROVED REPORT EXAM: Two-dimensional and M-mode echocardiogram with Doppler and color Doppler. Other Information Quality : AverageHR: 99bpm INDICATION Congestive Heart Failure Surgery/Intervention Pacemaker: RISK FACTORS Hypertension Hyperlipidemia Diabetes 2D DIMENSIONS RVDd2.2 (2.9-3.5cm)Left Atrium(2D)4.1 (1.6-4.0cm) IVSd1.2 (0.7-1.1cm)Aortic Root(2D)2.8 (2.0-3.7cm) LVDd6.7 (3.9-5.9cm)LVOT Diameter2.0 (1.8-2.4cm) PWd1.3 (0.7-1.1cm)LVDs5.3 (2.5-4.0cm) FS (%) 19.9 %SV90.7 ml LVEF(%)39.8 (>50%) Aortic Valve AoV Peak Jacoby.180.8cm/sAoV VTI35.0cm AO Peak GR.13.1mmHgLVOT Peak Jacoby.124.9cm/s LVOT VTI 27.46cmAO Mean GR.7mmHg JOSE (VMAX)2.13og1UBR (VTI)2.54cm2 Pulmonary Valve PV Peak Gsffbjif731.3cm/sPV Peak Grad.6mmHg LEFT VENTRICLE The Left Ventricle is moderately dilated. There is moderate concentric left ventricular hypertrophy. The left ventricular systolic function is moderately impaired. The Ejection Fraction is 30-35%. Abnor mal septal motion secondary to paced rhythm. Diastology indeterminate. RIGHT VENTRICLE The right ventricle is normal size. There is normal right ventricular wall thickness. Systolic functi on is borderline reduced. There is a pacemaker lead in the right ventricle. ATRIA The left atrium size is normal. The right atrium is borderline dilated. The interatrial septum is int act with no evidence for an atrial septal defect or patent foramen ovale as noted on 2-D or Doppler i nelda. AORTIC VALVE The aortic valve is normal in structure and function. Doppler and Color Flow revealed no significant aortic regurgitation. There is no significant aortic valvular stenosis. MITRAL VALVE The mitral valve is mildly thickened. There is no evidence of mitral valve prolapse. There is no mitr al valve stenosis. Doppler and Color-flow revealed trace to mild mitral regurgitation. TRICUSPID VALVE The tricuspid valve is normal in structure and function. Doppler and Color Flow revealed trace tricus pid regurgitation. There is no tricuspid valve stenosis. PULMONIC VALVE The pulmonary valve is normal in structure and function. Doppler and Color Flow revealed trace pulmon ic valvular regurgitation. GREAT VESSELS The aortic root is normal in size. The IVC is dilated and collapses <50% with inspiration. PERICARDIAL EFFUSION There is a trace circumferential pericardial effusion. Critical Notification Critical Value: No <Conclusion> The left ventricular systolic function is moderately impaired. The Ejection Fraction is 30-35%. There is a pacemaker lead in the right atrium and right ventricle. Trace to mild mitral regurgitation. Trace tricuspid regurgitation. There is a trace circumferential pericardial effusion. Signed by : Saleem Buchanan, Electronically Approved : 10/07/2018 14:00:16
[2018-10-07 15:06] VITALS: BP 159/74
[2018-10-07] MEDS ORDERED: ALBUTEROL SULFATE 2.5 MG/3 ML NEBU. ONE (15:39)
[2018-10-07] MEDS: ALBUTEROL SULFATE 2.5 MG/3 ML NEBU. NEB PRN ×2 (15:45→23:19)
[2018-10-07] MEDS ORDERED: FUROSEMIDE 40 MG/4 ML VIAL IVP ONE (16:00)
[2018-10-07 19:20] VITALS: BP 162/74
[2018-10-07] MEDS: CARVEDILOL 3.125 MG TABLET PO SCH (19:47)
[2018-10-07] MEDS: ATORVASTATIN CALCIUM 10 MG TABLET. PO SCH (19:47)
[2018-10-07] MEDS: LACTOBACILLUS RHAMNOSUS GG 1 CAPSULE. PO SCH (19:47)
[2018-10-07] MEDS ORDERED: AZITHROMYCIN 250 MG TABLET. PO SCH (21:00)
[2018-10-07 23:15] VITALS: BP 150/80
--- NOTE | 2018-10-07 23:58 | PN ---
DATE: 10/07/2018 SUBJECTIVE: The patient is resting slightly propped up in bed. She apparently had been short of breath this morning and we did actually give her Lasix 40 mg and she received another 40 mg this afternoon. She was seen by the Cardiology team and was also started on Imdur and carvedilol. OBJECTIVE: GENERAL: When I saw her this afternoon, she was resting slightly propped up in bed, continues to be huffing and puffing. She was pale, but no jaundice, cyanosis, or thyromegaly. No jugular venous distention. No limb edema. VITAL SIGNS: Her heart rate was 94, blood pressure was 159/74, her temperature was 98.6, respiratory rate 22, and oxygen saturation was 94% on 2 liters of oxygen. HEAD, EYES, EARS, NOSE AND THROAT: Showed normocephalic, atraumatic. NECK: Supple. HEART: Showed normal first and second heart sounds with no gallop, rub or murmur. CHEST: Clear to auscultation. Equal bilateral expansion, air entry, vesicular sounds with crepitation bilaterally and very few scattered rhonchi. She has actually what seemed to be bronchial breath sounds on the left side. ABDOMEN: Soft, nontender. NEUROLOGIC: She is awake, alert, responding appropriately. All cranial nerves intact. She moves extremities without difficulty. Her intake over the last 24 hours and output were incompletely recorded. LABORATORY DATA: Her lab work this morning showed a serum sodium of 145, potassium 4.1, chloride 113, bicarbonate 21, anion gap of 11, BUN 36, creatinine 2.5, estimated GFR was 19 mL per minute, her glucose 127, calcium was 9.4. Her white cell count of 5300, hemoglobin 9.4, hematocrit 28, MCV 92, and platelet count of 165,000. She did have an echocardiogram done this morning, which showed that her left ventricular systolic function is moderately impaired with an ejection fraction of 30-35%. She had a pacemaker lead in the right atrium and right ventricle, trace to mild mitral regurgitation, trace tricuspid regurgitation, and trace circumferential pericardial effusion. ASSESSMENT AND PLAN: In summary, this is a 67-year-old female who was admitted with: 1. Community-acquired pneumonia for which she is on ceftriaxone and Zithromax. 2. She has also had acute on chronic systolic congestive heart failure for which she is now on IV Lasix and Coreg as well as Imdur was added. 3. She does have also multiple other medical problems including: A. Hypertension. She is suboptimally controlled. B. Type 2 diabetes mellitus that seemed to be reasonably controlled. C. Hyperlipidemia. D. Chronic kidney disease. E. 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 F. Generalized osteoarthritis. She had also hepatitis C that was treated 2 years ago and apparently cured. GARY DEAN MD DR: HÉCTOR/gifty JOB#: [id number] / [id number]
[2018-10-08] MEDS: IPRATRPIUM/ALBUTEROL 0.5/2.5MG 3 ML NEBU. NEB SCH ×2 (04:41→15:52)
[2018-10-08 05:52] VITALS: BP 150/75
[2018-10-08 06:53] LABS: HEMATOCRIT 30.8 % (36.0-47.0); HEMOGLOBIN 10.1 g/dL (12.0-15.5); RED BLOOD COUNT 3.3 x10^6/uL (3.50-5.40); RED CELL DISTRIBUTION WIDTH 15.7 % (11.5-14.5); WHITE BLOOD COUNT 6.6 x10^3/uL (4.0-11.0)
[2018-10-08 07:10] LABS: ALBUMIN 2.7 g/dL (3.4-5.0); ALBUMIN/GLOBULIN RATIO 0.8 (1.0-1.7); CALCIUM 9.6 mg/dL (8.5-10.1); CREATININE 2.6 mg/dL (0.6-1.0); GFR 18.4; POTASSIUM 4.6 mmol/L (3.5-5.1); TOTAL BILIRUBIN 0.3 mg/dL (0.2-1.0); TOTAL PROTEIN 6.3 g/dL (6.4-8.2)
[2018-10-08] MEDS: NYSTATIN TOPICAL POWDER 15GM BOTTLE. TP SCH (09:00)
[2018-10-08] MEDS ORDERED: ISOSORBIDE MONONITRATE ER 30 MG TAB.ER.24H PO SCH (09:00)
[2018-10-08] MEDS: amLODIPine BESYLATE 10 MG TABLET PO SCH (10:06)
[2018-10-08] MEDS: FUROSEMIDE 40 MG/4 ML VIAL IVP SCH (10:07)
[2018-10-08] MEDS: LACTOBACILLUS RHAMNOSUS GG 1 CAPSULE. PO SCH (10:08)
[2018-10-08] MEDS: CLOPIDOGREL BISULFATE 75 MG TABLET PO SCH (10:08)
[2018-10-08] MEDS: CARVEDILOL 3.125 MG TABLET PO SCH ×2 (10:08→17:42)
[2018-10-08] MEDS: SERTRALINE 50 MG TABLET. PO SCH (10:08)
[2018-10-08 10:25] VITALS: BP 153/80
--- NOTE | 2018-10-08 11:08 | PDOC ---
PROGRESS NOTES Diagnosis Problem Problems Medical Problems: (1) Pneumonia Status: Acute Assessment 1. Acute respiratory insufficiency in the setting of pneumonia and CKD - continue diuresis with Lasix 2. NICM s/p CRTd - 2-D echo showed LVEF 30-35% 3. Hypertension -well controlled 4. CKD stage IV 5. diabetes mellitus - per PCP Objective Vital Signs Date Time Temp Pulse Resp B/P (MAP) Pulse Ox O2 Delivery O2 Flow Rate FiO2 10/08/18 10:09 97 150/75 10/08/18 05:52 99.7 24 89 Nasal Cannula 2.0 Intake and Output 10/08/18 06:59 Intake Total 1350 ml Output Total 1050 ml Balance 300 ml Intake Oral 1350 ml Output Urine Total 1050 ml # Voids 3 Review of Relevant I have reviewed the following items kenyon (where applicable) has been applied. Labs Laboratory Tests Test 10/07/18 06:04 10/08/18 06:40 Sodium Level 145 mmol/L (136-145) 143 mmol/L (136-145) Potassium Level 4.1 mmol/L (3.5-5.1) 4.6 mmol/L (3.5-5.1) Chloride Level 113 mmol/L (98-107) 112 mmol/L (98-107) Carbon Dioxide Level 21 mmol/L (21-32) 20 mmol/L (21-32) Anion Gap 11 (6-14) 11 (6-14) Blood Urea Nitrogen 36 mg/dL (7-20) 36 mg/dL (7-20) Creatinine 2.5 mg/dL (0.6-1.0) 2.6 mg/dL (0.6-1.0) Estimated GFR (Cockcroft-Gault) 19.2 18.4 Glucose Level 127 mg/dL (70-99) 130 mg/dL (70-99) Calcium Level 9.4 mg/dL (8.5-10.1) 9.6 mg/dL (8.5-10.1) White Blood Count 6.6 x10^3/uL (4.0-11.0) Red Blood Count 3.30 x10^6/uL (3.50-5.40) Hemoglobin 10.1 g/dL (12.0-15.5) Hematocrit 30.8 % (36.0-47.0) Mean Corpuscular Volume 93 fL (79-100) Mean Corpuscular Hemoglobin 30 pg (25-35) Mean Corpuscular Hemoglobin Concent 33 g/dL (31-37) Red Cell Distribution Width 15.7 % (11.5-14.5) Platelet Count 206 x10^3/uL (140-400) BUN/Creatinine Ratio 14 (6-20) Total Bilirubin 0.3 mg/dL (0.2-1.0) Aspartate Amino Transf (AST/SGOT) 21 U/L (15-37) Alanine Aminotransferase (ALT/SGPT) 14 U/L (14-59) Alkaline Phosphatase 151 U/L (46-116) Total Protein 6.3 g/dL (6.4-8.2) Albumin 2.7 g/dL (3.4-5.0) Albumin/Globulin Ratio 0.8 (1.0-1.7) Microbiology 10/05/18 Blood Culture - Final, Complete Medications Current Medications Sodium Chloride 1,000 ml @ 1,000 mls/hr 1X ONCE IV Last administered on at 20:57; Start 10/05/18 at 20:45; Stop 10/05/18 at 21:44; Status DC Ceftriaxone Sodium 1 gm/ Sodium Chloride 50 ml @ 100 mls/hr 1X ONCE IV Last administered on 10/05/18at 21:37; Start 10/05/18 at 21:15; Stop 10/05/18 at 21:44 ; Status DC Azithromycin 500 mg/Sodium Chloride 250 ml @ 250 mls/hr 1X ONCE IV Last administered on 10/05/18at 21:37; Start 10/05/18 at 21:15; Stop 10/05/18 at 22:14 ; Status DC Sodium Chloride 250 ml @ As Directed STK-MED ONCE .ROUTE ; Start 10/05/18 at 21 :28; Stop 10/05/18 at 21:29; Status DC Sodium Chloride 50 ml @ As Directed STK-MED ONCE .ROUTE ; Start 10/05/18 at 21: 28; Stop 10/05/18 at 21:29; Status DC Azithromycin (Zithromax) 500 mg STK-MED ONCE IV ; Start 10/05/18 at 21:28; Stop 10/05/18 at 21:29; Status DC Ceftriaxone Sodium (Rocephin) 1 gm STK-MED ONCE .ROUTE ; Start 10/05/18 at 21:28 ; Stop 10/05/18 at 21:29; Status DC Ondansetron HCl (Zofran) 4 mg PRN Q4HRS PRN IV NAUSEA/VOMITING Last administered on 10/06/18 03:16; Start 10/05/18 at 21:45; Stop 10/06/18 at 21:44 ; Status DC Acetaminophen (Tylenol) 650 mg PRN Q4HRS PRN PO FEVER; Start 10/05/18 at 21:45 ; Stop 10/06/18 at 21:44; Status DC Albuterol/ Ipratropium (Duoneb) 3 ml RTQID NEB Last administered on 10/08/18 04:41; Start 10/06/18 at 08:00 Nystatin (Nystop) 1 stefanie BID TP Last administered on 10/08/18 09:00; Start at 09:00 Ceftriaxone Sodium 1 gm/ Sodium Chloride 50 ml @ 100 mls/hr HS IV Last administered on 10/07/18 19:46; Start 10/06/18 at 21:00 Azithromycin 500 mg/Sodium Chloride 250 ml @ 250 mls/hr Q24H IV Last administered on 10/06/18 22:46; Start 10/06/18 at 22:00; Stop 10/07/18 at 14:04 ; Status DC Amlodipine Besylate (Norvasc) 10 mg DAILY PO Last administered on 10/08/18 10: 06; Start 10/06/18 at 09:00 Atorvastatin Calcium (Lipitor) 10 mg QHS PO Last administered on 10/07/18 19: 47; Start 10/06/18 at 21:00 Hydralazine HCl (Apresoline) 50 mg TID PO Last administered on 10/06/18 15:29 ; Start 10/06/18 at 09:00; Stop 10/06/18 at 17:45; Status DC Clopidogrel Bisulfate (Plavix) 75 mg DAILY PO Last administered on 10/08/18 10 :08; Start 10/07/18 at 09:00 Sertraline HCl (Zoloft) 50 mg DAILY PO Last administered on 10/08/18 10:08; Start 10/07/18 at 09:00 Non-Formulary Medication (Hydralazine Hcl ) 1 tab TID PO ; Start 10/06/18 at 21: 00; Status UNV Furosemide (Lasix) 40 mg DAILY IVP Last administered on 10/08/18 10:07; Start 10/07/18 at 07:00 Hydralazine HCl (Apresoline) 50 mg STK-MED ONCE .ROUTE ; Start 10/06/18 at 15:26 ; Stop 10/06/18 at 15:27; Status DC Hydralazine HCl (Apresoline) 100 mg TID PO Last administered on 10/08/18 10:07 ; Start 10/06/18 at 21:00 Ondansetron HCl (Zofran) 4 mg PRN Q4HRS PRN IV NAUSEA/VOMITING Last administered on 10/07/18 23:50; Start 10/07/18 at 06:15 Guaifenesin (Mucinex Er) 600 mg BID PO Last administered on 10/08/18 10:06; Start 10/07/18 at 06:30 Lorazepam (Ativan) 0.5 mg PRN Q8HRS PRN PO ANXIETY / AGITATION Last administered on 10/07/18 23:49; Start 10/07/18 at 06:15 Lactobacillus Rhamnosus (Culturelle) 1 cap BID PO Last administered on 10:08; Start 10/07/18 at 21:00 Isosorbide Mononitrate (Imdur) 30 mg 1X ONCE PO Last administered on 14:03; Start 10/07/18 at 14:00; Stop 10/07/18 at 14:01; Status DC Isosorbide Mononitrate (Imdur) 30 mg DAILY PO Last administered on 10/08/18 10 :09; Start 10/08/18 at 09:00 Carvedilol (Coreg) 3.125 mg BIDWMEALS PO Last administered on 10/08/18 10:08; Start 10/07/18 at 17:00 Azithromycin (Zithromax) 500 mg QHS PO Last administered on 10/07/18 19:46; Start 10/07/18 at 21:00 Albuterol Sulfate (Ventolin) 2.5 mg STK-MED ONCE .ROUTE ; Start 10/07/18 at 15: 39; Stop 10/07/18 at 15:40; Status DC Furosemide (Lasix) 40 mg 1X ONCE IVP Last administered on 10/07/18at 15:45; Start 10/07/18 at 16:00; Stop 10/07/18 at 16:01; Status DC Albuterol Sulfate (Ventolin) 2.5 mg PRN Q4HRS PRN NEB SHORTNESS OF BREATH Last administered on 10/07/18at 23:19; Start 10/07/18 at 15:45 Active Scripts Active Reported Hydralazine Hcl 100 Mg Tablet 1 Tab PO TID Sertraline Hcl 50 Mg Tablet 50 Mg PO DAILY Amlodipine-Atorvast 10-10 Mg (Amlodipine/Atorvastatin) 1 Each Tablet 1 Each PO Plavix (Clopidogrel Bisulfate) 75 Mg Tablet 1 Tab PO DAILY Furosemide 40 Mg Tablet 1 Tab PO DAILY Vitals/I & O Vital Sign - Last 24 Hours 10/07/18 10/07/18 10/07/18 10/07/18 14:03 14:03 15:06 17:49 Temp 98.6 Pulse 99 99 94 Resp 22 B/P (MAP) 184/75 184/75 159/74 (102) Pulse Ox 94 95 O2 Delivery Nasal Cannula O2 Flow Rate 2.0 2.0 10/07/18 10/07/18 10/07/18 10/07/18 19:20 19:47 19:47 20:00 Temp 98.6 Pulse 97 94 94 Resp 24 B/P (MAP) 162/74 (103) 159/74 159/74 Pulse Ox 95 O2 Delivery Nasal Cannula Room Air O2 Flow Rate 2.0 2.0 10/07/18 10/07/18 10/08/18 10/08/18 20:09 23:15 04:42 05:52 Temp 99.4 99.7 Pulse 92 97 Resp 24 24 B/P (MAP) 150/80 (103) 150/75 (100) Pulse Ox 97 92 99 89 O2 Delivery Nasal Cannula Nasal Cannula Nasal Cannula Nasal Cannula O2 Flow Rate 2.0 2.0 3.0 2.0 10/08/18 10/08/18 10/08/18 10/08/18 10:06 10:07 10:08 10:09 Pulse 97 97 97 97 B/P (MAP) 150/75 150/75 150/75 150/75 Intake and Output 10/07/18 10/07/18 10/08/18 14:59 22:59 06:59 Intake Total 240 ml 960 ml 150 ml Output Total 600 ml 450 ml Balance 240 ml 360 ml -300 ml JOSE ROBERTS MD Oct 08, 2018 11:08
[2018-10-08 16:00] VITALS: BP 166/72
--- NOTE | 2018-10-08 16:30 | RAD ---
CHEST AP ONLY History: WORSENING SHORTNESS OF BREATH Comparison: October 07, 2018 Findings: Single view of the chest is submitted. There is again left electronic cardiac device. Cardiac silhouette is enlarged as seen previously. There is again obscured left hemidiaphragm, likely moderate left pleural effusion with adjacent airspace opacity similar. There is also probable very small right pleural effusion, mild right base airspace opacity similar. No pneumothorax is identified. Impression: 1. There is again probable moderate left pleural effusion with adjacent atelectasis/infiltrate, suspected very small right pleural effusion and mild right base atelectasis or infiltrate. Electronically signed by: Carlos Schafer MD (10/08/2018 4:27 PM) [facility]
[2018-10-08] MEDS ORDERED: ACETAMINOPHEN 500 MG TABLET PO PRN (17:00)
[2018-10-08 18:17] VITALS: BP 166/70
--- NOTE | 2018-10-08 18:41 | RAD ---
Left upper extremity venous Doppler 10/08/2017 CLINICAL INDICATION: Swollen left upper extremity. COMPARISON: None. FINDINGS: Grayscale, color Doppler and spectral waveform analysis was obtained of the left upper extremity venous system. Images are labeled right, however animal husbandry teacher noted that they are indeed left. Left internal jugular, subclavian, cephalic, radial, ulnar, basilic and brachial and axillary veins are patent with normal color Doppler imaging. IMPRESSION: No evidence of DVT in the left upper extremity. Electronically signed by: Dick Ruano MD (10/08/2018 6:38 PM) [facility]
--- NOTE | 2018-10-08 21:11 | PN ---
DATE: 10/08/2018 SUBJECTIVE: The patient has continued to complain of shortness of breath and back pain. When I examined her, she was clearly orthopneic, tachypneic, pale. No jaundice, cyanosis, or thyromegaly. No jugular distention, but bilateral lower limb edema. Her left upper extremity is more swollen than the right. PHYSICAL EXAMINATION: VITAL SIGNS: Her heart rate was 97, blood pressure 150/75, temperature was 99.7, respiratory rate was 24, and oxygen saturation was 94% on 2 liters of oxygen. HEAD, EYES, EARS, NOSE, AND THROAT: Showed normocephalic, atraumatic. NECK: Supple. HEART: Showed normal first and second heart sounds with no gallop, rub, or murmur. CHEST: Showed central trachea, equally reduced expansion, reduced air entry, vesicular breath sounds with crepitation, more on the right side than the left. ABDOMEN: Distended, soft, nontender. NEUROLOGIC: She is awake, alert, responding appropriately. All her cranial nerves intact. She moves extremities without difficulty. She is mostly bed bound. Her intake over the last 24 hours was 1700, no output was recorded. LABORATORY DATA: As of this morning, her serum sodium 143, potassium 4.6, chloride 112, bicarbonate 20, anion gap of 11, BUN 36, creatinine 2.6, estimated GFR was 18 mL per minute. Her glucose 130, calcium was 9.6. Total bilirubin, AST, ALT were normal. Alkaline phosphatase was 151. Total protein was 6.3, albumin 2.7. Her white cell count was 6600, hemoglobin 10, hematocrit 30, MCV 93, and platelet count of 206,000. ASSESSMENT: 1. Community-acquired pneumonia, for which she is on ceftriaxone and Zithromax. 2. Eyutv-di-auxugnw systolic congestive heart failure, for which she is on IV Lasix and Coreg as well as Imdur that was added. 3. She has also multiple other medical problems including: A. Hypertension that seems to be much better controlled. B. Type 2 diabetes mellitus, seems reasonably controlled. C. Hyperlipidemia. D. Chronic kidney disease. E. Cerebrovascular accident, residual right-sided hemiparesis. F. Generalized osteoarthritis. G. Did have hepatitis C that was treated 2 years ago and apparently cured. PLAN: My plan is to arrange for her to have a venous Doppler ultrasound of her left upper extremity. Repeat her chest x-ray and increase her Lasix as she continued to be doing poorly. GARY DEAN MD DR: HÉCTOR/gifty JOB#: [id number] / [id number]
--- NOTE | 2018-11-10 15:30 | DS ---
DATE OF DISCHARGE: 10/08/2018 HISTORY OF PRESENT ILLNESS: The patient is a 68-year-old female patient who was admitted to on 10/05/2018, she presented to the Emergency Room with a complaint of increasing shortness of breath for the last 2 days prior to admission, also cough that is mostly dry. She also noted that her left foot and left lower leg is swollen more than the right. She denied any chest pain. She does not believe that she has any fever at home. She has no history of lung disease before. She was evaluated in the Emergency Room and has had lab working which showed that her white cell count was normal. Her chemistry showed that she has chronic kidney disease with a BUN of 38, creatinine 2.4. Her chest x-ray showed that she has cardiomegaly. She has also bibasilar opacities. Seemed to have developed consolidation, although atelectasis may have similar appearance. She has small left-sided pleural effusion, but no pneumothorax and therefore, she was admitted with community-acquired pneumonia and possible pkkja-vg-bcsjwwb congestive heart failure and we did start her on ceftriaxone and Zithromax. She was seen in consultation by the Cardiology team and some adjustments were made on her medication. Unfortunately, the patient continued to do poorly with worsening renal function and also ffier-th-jqhkgrq decompensated heart failure and therefore, a decision was made to transfer her to [facility] to start her on milrinone drip. PHYSICAL EXAMINATION: GENERAL: On the day of discharge, the patient looked continued to be somewhat tachypneic and pale, but no jaundice or cyanosed. No lymphadenopathy, no thyromegaly. No jugular venous distention. Mild bilateral lower limb edema. VITAL SIGNS: Her heart rate was 92, blood pressure 166/70, temperature was 98.4, respiratory rate was 24, and oxygen saturation was 92% on 3.5 liters of oxygen by nasal cannula. HEAD, EYES, EARS, NOSE AND THROAT: Showed normocephalic, atraumatic. NECK: Supple. HEART: Showed normal first and second heart sounds. No gallop, rub or murmur. CHEST: Clear to auscultation. No crepitation or rhonchi. ABDOMEN: Distended, soft, nontender. There is no guarding or rigidity. No organomegaly. All hernial orifices are intact. Bowel sounds normal. NEUROLOGIC: She was awake, alert, responding appropriately. She does have mild right-sided hemiparesis. LABORATORY DATA: Her lab work on the day of discharge showed that her white cell count was 6600, hemoglobin 10, hematocrit 30, MCV 93, and platelet count 206,000. Her serum sodium was 143, potassium 4.6, chloride 112, bicarbonate 20, anion gap of 11, BUN 36, creatinine 2.6. Her glucose was 130, calcium was 9.6. Total bilirubin, AST and ALT are normal. Alkaline phosphatase slightly elevated. Total protein was 6.3 and albumin 2.7. MEDICATIONS: She was discharged to continue on the amlodipine/atorvastatin one tablet once a day, Plavix 75 mg once a day, furosemide 40 mg daily, hydralazine 100 mg three times a day and sertraline 50 mg daily. FINAL DISCHARGE DIAGNOSES: 1. Community-acquired pneumonia for which she is on ceftriaxone and Zithromax. 2. Kycdj-dy-cioabdi systolic congestive heart failure, treated with IV Lasix as well as Coreg and Imdur. 3. She has also multiple other medical problems including: A. Hypertension, seems to be much better controlled. B. Type 2 diabetes mellitus, seems to be reasonably controlled. C. Hyperlipidemia. D. Chronic kidney disease. E. 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 F. Generalized osteoarthritis. Apparently, the patient did have Hepatitis C that was treated 2 years ago and apparently cured. GARY DEAN MD DR: HÉCTOR/gifty JOB#: [id number] / [id number]
== END 2018-10-08 18:30 | disposition short-term general hospital (02) | DRG 871 ==
LOC: ER 19:25 → 1 SOUTH 21:40
PROVIDERS: ADMIT Internal Medicine; ATTEND Internal Medicine
DX: A41.9 Sepsis, unspecified organism (principal); J18.9 Pneumonia, unspecified organism; I50.33 Acute on chronic diastolic (congestive) heart failure; I13.0 Hypertensive heart and chronic kidney disease with heart failure and stage 1 through stage 4 chronic kidney disease, or unspecified chronic kidney disease; I69.351 Hemiplegia and hemiparesis following cerebral infarction affecting right dominant side; N18.4 Chronic kidney disease, stage 4 (severe); R47.01 Aphasia; I42.9 Cardiomyopathy, unspecified; E11.22 Type 2 diabetes mellitus with diabetic chronic kidney disease; E78.5 Hyperlipidemia, unspecified; M15.9 Polyosteoarthritis, unspecified; Z80.3 Family history of malignant neoplasm of breast; Z82.49 Family history of ischemic heart disease and other diseases of the circulatory system; Z82.5 Family history of asthma and other chronic lower respiratory diseases; Z83.3 Family history of diabetes mellitus; Z90.49 Acquired absence of other specified parts of digestive tract; Z95.0 Presence of cardiac pacemaker; Z90.710 Acquired absence of both cervix and uterus; Z98.41 Cataract extraction status, right eye; Z98.42 Cataract extraction status, left eye; Z88.2 Allergy status to sulfonamides; Z88.8 Allergy status to other drugs, medicaments and biological substances
CPT/HCPCS: 36415; 71045; 80048; 80053; 83605; 83880; 84484; 85025; 85027; 87040; 87077; 87205; 93005; 93306; 93971; 94640; 96361; 96365; 96368; J0456; J0696; J1940; J2405; J7050; J7613; J7620; 97530; 99285-25; J7030

== ENCOUNTER → 2019-01-14 | Outpatient (CLI) | payer OTHER ==
[~2019-01-14] MED LIST changes: +HYDR100T24 PO; +SERT50TA8 PO
== END | disposition home or self-care (01) ==
LOC: LAB 12:36
PROVIDERS: ATTEND Internal Medicine Nephrology
DX: E78.5 Hyperlipidemia, unspecified (principal); N18.6 End stage renal disease
CPT/HCPCS: 36415; 84132

== ENCOUNTER → 2019-05-05 | Outpatient (CLI) | payer OTHER, MEDICAID ==
--- NOTE | 2019-05-09 09:14 | RAD ---
DATE: 05/05/2019 1:30 PM EXAM: DIGITAL SCREEN BILAT W/CAD HISTORY: Screening mammograms COMPARISON: April 28, 2018 Bilateral CC and MLO views of the breasts were performed. This study was interpreted with the benefit of Computerized Aided Detection (CAD). FINDINGS: Breast Density: SCATTERED The breast parenchyma shows scattered fibroglandular densities. Breast parenchyma level B Left-sided pacemaker overlying the left posterior upper breast degrading evaluation of underlying detail, unchanged. Bilateral benign appearing breast calcifications, unchanged. No new suspicious macrocalcification, mass or architectural distortion. IMPRESSION: No mammographic evidence of malignancy. BI-RADS CATEGORY: 2 BENIGN FINDING(S) RECOMMENDED FOLLOW-UP: 12M 12 MONTH FOLLOW-UP Annual screening mammography is recommended, unless clinically indicated sooner based on symptoms or change in physical exam. PQRS compliance statement: Patient information was entered into a reminder system with a target due date one year for the next mammogram. Mammography is a sensitive method for finding small breast cancers, but it does not detect them all and is not a substitute for careful clinical examination. A negative mammogram does not negate a clinically suspicious finding and should not result in delay in biopsying a clinically suspicious abnormality. "Our facility is accredited by the [employer] Mammography Program."
== END | disposition home or self-care (01) ==
LOC: MAMMO 13:37
PROVIDERS: ATTEND Physician Assistant Medical
DX: Z12.31 Encounter for screening mammogram for malignant neoplasm of breast (principal); N64.89 Other specified disorders of breast
CPT/HCPCS: 77067

== ENCOUNTER → 2020-05-28 | Outpatient (CLI) | payer MEDICARE, OTHER ==
--- NOTE | 2020-05-28 14:39 | CARD ---
MR#: [id number] Date of Study: 05/28/2020 Ordering Physician: MATEO ESPARZA, Referring Physician: MATEO ESPARZA, Tech: Cyndy Yee APPROVED REPORT EXAM: Two-dimensional and M-mode echocardiogram with Doppler and color Doppler. Other Information Quality : AverageHR: 67bpm INDICATION Cardiomyopathy Surgery/Intervention Pacemaker: RISK FACTORS Hypertension Hyperlipidemia 2D DIMENSIONS RVDd3.3 (2.9-3.5cm)Left Atrium(2D)3.5 (1.6-4.0cm) IVSd1.0 (0.7-1.1cm)Aortic Root(2D)2.8 (2.0-3.7cm) LVDd5.0 (3.9-5.9cm)LVOT Diameter2.0 (1.8-2.4cm) PWd0.8 (0.7-1.1cm)LVDs3.1 (2.5-4.0cm) FS (%) 37.9 %SV80.4 ml LVEF(%)67.8 (>50%) Aortic Valve AoV Peak Jacoby.160.6cm/sAoV VTI36.8cm AO Peak GR.10.3mmHgLVOT Peak Jacoby.124.4cm/s LVOT VTI 29.02cmAO Mean GR.5mmHg JOSE (VMAX)2.21vr4XUH (VTI)2.50cm2 Mitral Valve MV E Tufbimry777.0cm/sMV E Peak Gr.5mmHg MV DECEL IESF460jlCL A Fqhhspjs823.8cm/s MV E Mean Gr.3mmHgE/A Ratio0.9 Pulmonary Valve PV Peak Syhbpsjp30.5cm/sPV Peak Grad.3mmHg Tricuspid Valve TR P. Fluupbsh482bm/sRAP [id number] TR Peak Gr.35zdIuXALZ84opJv Pulmonary Vein S1 Eswjvdfe22.5cm/sD2 Zmjdrzmo16.5cm/s LEFT VENTRICLE The left ventricle is normal size. There is normal left ventricular wall thickness. The left ventricu lar systolic function is normal. The Ejection Fraction is 55-60%. There is normal LV segmental wall m otion. Transmitral Doppler flow pattern is Grade I-abnormal relaxation pattern. RIGHT VENTRICLE The right ventricle is normal size. There is normal right ventricular wall thickness. The right ventr icular systolic function is normal. There is a pacemaker lead in the right ventricle. ATRIA The left atrium size is normal. The right atrium size is normal. The interatrial septum is intact wit h no evidence for an atrial septal defect or patent foramen ovale as noted on 2-D or Doppler imaging. AORTIC VALVE The aortic valve is normal in structure and function. Doppler and Color Flow revealed no significant aortic regurgitation. There is no significant aortic valvular stenosis. Calculated aortic valve area is 2.9 cm2 with maximum pressure gradient of 10 mmHg and mean pressure gradient of 5 mmHg. MITRAL VALVE The mitral valve is thickened but opens well. There is no evidence of mitral valve prolapse. There is no mitral valve stenosis. Doppler and Color Flow revealed no mitral valve regurgitation noted. TRICUSPID VALVE The tricuspid valve is normal in structure and function. Doppler and Color Flow revealed trace tricus pid regurgitation with an estimated PAP of 19 mmHg. There is no tricuspid valve stenosis. PULMONIC VALVE The pulmonic valve is not well visualized. Doppler and Color Flow revealed trace pulmonic valvular re gurgitation. GREAT VESSELS The aortic root is normal in size. The IVC was not visualized. PERICARDIAL EFFUSION There is no evidence of significant pericardial effusion. Critical Notification Critical Value: No <Conclusion> The left ventricular systolic function is normal. The Ejection Fraction is 55-60%. There is normal LV segmental wall motion. Transmitral Doppler flow pattern is Grade I-abnormal relaxation pattern. Pacer lead noted in RA/RV. Trace tricuspid regurgitation with an estimated PAP of 19 mmHg. There is no evidence of significant pericardial effusion. Signed by : Saleem Buchanan, Electronically Approved : 05/28/2020 14:38:24
== END ==
LOC: ECHO 09:27
PROVIDERS: ATTEND Internal Medicine Cardiovascular Disease
DX: I42.9 Cardiomyopathy, unspecified (principal)
CPT/HCPCS: 93306